=== PATIENT | male | born 1945 | race Caucasian/White ===

== ENCOUNTER 2017-01-20 09:09 | Outpatient (CLI) | payer OTHER ==
[~2017-01-20 09:09] MED LIST: KETO10TA2 PO; LIPITOR20 MG PO; ORPH100T PO; ZOLOFT25 MG PO
== END 2017-01-20 09:18 | disposition home or self-care (01) ==
LOC: NUCLEAR 09:09
DX: R74.0 Nonspecific elevation of levels of transaminase and lactic acid dehydrogenase [LDH] (principal)
CPT/HCPCS: 78215; A9541

== ENCOUNTER → 2017-03-22 | Outpatient (CLI) | payer OTHER | END | disposition home or self-care (01) | LOC: PPH VACUNA 15:28 | DX: Z23 Encounter for immunization (principal) | CPT/HCPCS: 90674; G0008 ==

== ENCOUNTER → 2017-09-03 09:14 | Outpatient (CLI) | payer OTHER | END | disposition home or self-care (01) | LOC: LAB 09:14 | DX: E11.9 Type 2 diabetes mellitus without complications (principal); E88.81 Metabolic syndrome and other insulin resistance; E78.4 Other hyperlipidemia; R82.8 Abnormal findings on cytological and histological examination of urine ==

== ENCOUNTER 2017-09-03 09:58 | Outpatient (CLI) | payer OTHER | END 2017-09-03 10:01 | disposition home or self-care (01) | LOC: RAD 09:58 | DX: N20.0 Calculus of kidney (principal) ==

== ENCOUNTER 2017-09-16 14:43 | Outpatient (CLI) | payer OTHER | END 2017-09-16 16:41 | disposition home or self-care (01) | LOC: NUCLEAR 14:43 | DX: M81.0 Age-related osteoporosis without current pathological fracture (principal) ==

== ENCOUNTER 2018-08-08 14:03 | Emergency (ER) | payer OTHER ==
[~2018-08-08] VITALS: Ht 175.3 cm; Wt 115.7 kg
[2018-08-08] MEDS ORDERED: ASPIR-LOW81 MG (14:23)
[2018-08-08] MEDS ORDERED: LEXAPRO20 MG (14:23)
== END 2018-08-08 16:53 | disposition home or self-care (01) ==
LOC: ER 14:03
DX: K59.09 Other constipation (principal)

== ENCOUNTER 2020-03-19 10:25 | Outpatient (CLI) | payer OTHER ==
[~2020-03-19 10:25] MED LIST changes: +ASPIR-LOW81 MG; +LEXAPRO20 MG
== END 2020-03-19 12:49 | disposition home or self-care (01) ==
LOC: NUCLEAR 10:25
PROVIDERS: ATTEND Internal Medicine Rheumatology
DX: M81.0 Age-related osteoporosis without current pathological fracture (principal)

== ENCOUNTER 2021-08-18 07:36 | Outpatient (CLI) | payer OTHER | END 2021-08-18 07:42 | disposition home or self-care (01) | LOC: NUCLEAR 07:36 | DX: R47.01 Aphasia (principal) ==

== ENCOUNTER 2024-11-28 13:22 | Outpatient (CLI) | payer OTHER ==
[~2024-11-28 13:22] MED LIST changes: +CARBIDOPA25 MG PO; +LEXAPRO20 MG PO; +LIPITOR40 M1 PO; +OXYBUTYNIN CHLOR5 MG PO
== END 2024-11-28 13:26 | disposition home or self-care (01) ==
LOC: RAD 13:22
PROVIDERS: ATTEND Internal Medicine Pulmonary Disease
DX: R05.3 Chronic cough (principal); R07.9 Chest pain, unspecified